=== PATIENT | female | born 1970 | race Caucasian/White ===

== ENCOUNTER → 2022-11-03 | Outpatient (CLI) | payer BC ==
--- NOTE | 2022-11-04 08:55 | MM ---
Reason for Exam: Screening (asymptomatic). Last mammogram was performed 11 year(s) and 2 month(s) ago. Patient History: Menarche at age 15. First Full-Term at age 25. Postmenopausal. Patient used Hormonal Contraceptives for 10 years. Currently using Estrogen and Progesterone, starting at age 51. 2013, Bilateral Implants. Maternal aunt had breast cancer, age 40. Maternal aunt had breast cancer. Risk Values: Mikayla 5 year model risk: 0.9%. NCI Lifetime model risk: 8.0%. Prior Study Comparison: 08/12/2010 Bilateral Screening Mammogram, [facility]. 02/27/2011 Left Diagnostic Mammogram, [facility]. 09/08/2011 Bilateral Diagnostic Mammogram, [facility]. Tissue Density: The breast tissue is heterogeneously dense. This may lower the sensitivity of mammography. Findings: Analyzed By CAD. No suspicious group of microcalcifications within either breast. Bilateral breast implants demonstrated. No suspicious mass within the right breast. There are 2 asymmetries demonstrated within the left breast on the MLOID view in the superior breast middle depth and inferior breast posterior depth. Overall Assessment: Incomplete: need additional imaging evaluation, BI-RAD 0 Management: Diagnostic Mammogram of the left breast. A clinical breast exam by your physician is recommended on an annual basis and results should be correlated with mammographic findings. [facility] will attempt to contact patient to return for supplemental views and ultrasound if indicated. Electronically signed and approved by: Demarco Maldonado D.O.
== END | disposition home or self-care (01) ==
LOC: RADMAMWWP 13:30
PROVIDERS: ATTEND Obstetrics & Gynecology
DX: Z12.31 Encounter for screening mammogram for malignant neoplasm of breast (principal); Z78.0 Asymptomatic menopausal state; Z80.3 Family history of malignant neoplasm of breast; Z98.82 Breast implant status
CPT/HCPCS: 77063; 77067

== ENCOUNTER → 2022-11-10 | Outpatient (CLI) | payer BC ==
--- NOTE | 2022-11-11 10:08 | MM ---
Reason for Exam: Additional evaluation requested from abnormal screening. Last screening mammogram was performed less than 1 month ago. Patient History: Menarche at age 15. First Full-Term at age 25. Postmenopausal. Patient used Hormonal Contraceptives for 10 years. Currently using Estrogen and Progesterone, starting at age 51. 2013, Bilateral Implants. Maternal aunt had breast cancer, age 40. Maternal aunt had breast cancer. Risk Values: Mikayla 5 year model risk: 0.9%. NCI Lifetime model risk: 8.0%. Prior Study Comparison: 02/27/2011 Left Diagnostic Mammogram, [facility]. 09/08/2011 Bilateral Diagnostic Mammogram, [facility]. 11/03/2022 Bilateral MG 3D screen mammo imp/cad., [facility]. Tissue Density: Left: There are scattered fibroglandular densities. Findings: Analyzed By CAD. Density in question does not persist. Precautionary 6 month follow-up of the left breast is advised. Overall Assessment: Probably benign, BI-RAD 3 Management: Diagnostic Mammogram of the left breast in 6 months. A clinical breast exam by your physician is recommended on an annual basis and results should be correlated with mammographic findings. This exam should not preclude additional follow-up of suspicious palpable abnormalities. Results were given to the patient verbally at the time of exam. Electronically signed and approved by: Flaco Clark M.D. Radiologis
== END | disposition home or self-care (01) ==
LOC: RADMAMWWP 07:40
PROVIDERS: ATTEND Obstetrics & Gynecology
DX: R92.8 Other abnormal and inconclusive findings on diagnostic imaging of breast (principal); Z78.0 Asymptomatic menopausal state; Z80.3 Family history of malignant neoplasm of breast
CPT/HCPCS: 77061; 77065